=== PATIENT | male | born 1970 | race Caucasian/White ===

== ENCOUNTER 2021-09-04 05:38 | Outpatient (CLI) | payer BC ==
[~2021-09-04] VITALS: Ht 175.3 cm; Wt 94.9 kg
[~2021-09-04 05:38] MED LIST: ALLP100T PO; CEPH500C PO; HYDR-3583 PO
[2021-09-09] MEDS ORDERED: LISI10TA25 PO (11:29)
[2021-09-09] MEDS ORDERED: ALLO300T2 PO (11:29)
[2021-09-09] MEDS ORDERED: OMEP40CA6 PO (11:29)
== END 2021-09-09 11:31 | disposition home or self-care (01) ==
LOC: PREOP 05:38
PROVIDERS: ATTEND Surgery
DX: Z01.818 Encounter for other preprocedural examination (principal)

== ENCOUNTER 2021-09-11 08:24 | Day surgery (SDC) | payer BC ==
[2021-09-11] VITALS (10 sets, daily range): BP systolic 128–149; BP diastolic 75–84
[~2021-09-11] VITALS: Ht 175 cm; Wt 94.9 kg
[~2021-09-11 08:24] MED LIST changes: +ALLO300T2 PO; +LISI10TA25 PO; +OMEP40CA6 PO
[2021-09-11] MEDS ORDERED: LIDOCAINE/EPI 1%-1:200,000 (XYLOCAINE) 30 ML VIAL ONE (08:30)
[2021-09-11] MEDS ORDERED: LACTATED RINGERS 1,000 ML IV PRN (08:45)
[2021-09-11] MEDS ORDERED: ceFAZolin 2 GM IV Premixed 50 ML IV ONE (08:45)
--- NOTE | 2021-09-11 08:46 | Progress Note-Pre Operative ---
Pre-Operative Progress Note H&P Reviewed The H&P was reviewed, patient examined and no changes noted. Date Seen by Provider: Sep 11, 2021 Time Seen by Provider: 08:45 Date H&P Reviewed: Sep 11, 2021 Time H&P Reviewed: 08:40 Pre-Operative Diagnosis: Symptomatic ventral abdominal hernia TONG HONG APRN Sep 11, 2021 08:46
[2021-09-11] MEDS ORDERED: HYDR-3817 PO (08:49)
--- NOTE | 2021-09-11 08:49 | Discharge Inst-Surgical ---
D/C Lap Instructions-KIDO Reconcile Patient Problems Problems Reviewed?: Yes New, Converted, or Re-Newed RX: RX on Chart Follow Up Appt in 2 weeks Activity as tolerated No driving for 24 hours No driving while on pain medications Incentive Spirometry use every 2 hours while awake Regular Diet Symptoms to Report: Fever over 101 degree F, Nausea/Vomiting Infection Signs and Symptoms to report: Increased redness, Foul odor of wound, Increased drainage Bathing instructions: May shower Operative Area Clean/Dry; Keep incision clean/dry If any problems/questions: Contact your physician or go to Emergency Room TONG HONG APRN Sep 11, 2021 08:49
[2021-09-11] MEDS ORDERED: ONDANSETRON 4 MG/2 ML (SDV) Z0FRAN IVP PRN ×2 (09:00→11:15)
[2021-09-11] MEDS ORDERED: HYDROcodone/APAP 5 MG/325 MG (LORTAB) TAB PO ONE (09:00)
[2021-09-11] MEDS ORDERED: ACETAMINOPHEN 325 MG TABLET PO PRN (09:00)
[2021-09-11] MEDS ORDERED: morphine INJ 10 MG/ML 1ML (SYR OR VIAL) IVP PRN (09:00)
[2021-09-11] MEDS ORDERED: ONDANSETRON 4 MG/2 ML (SDV) Z0FRAN ONE (09:48)
[2021-09-11] MEDS ORDERED: proPOfol 200 MG/20 ML (DIPRIVAN) VIAL IV ONE (09:48)
[2021-09-11] MEDS ORDERED: LIDOCAINE PF 2% 5 ML (XYLOCAINE) VIAL ONE (09:48)
[2021-09-11] MEDS ORDERED: MIDAZOLAM 2 MG/2 ML (VERSED) VIAL ONE (09:49)
[2021-09-11] MEDS ORDERED: fentaNYL INJ 100 MCG/2 ML AMP ONE (09:49)
[2021-09-11] MEDS ORDERED: SEVOFLURANE (ULTANE) 15 ML INHAL SOLN ONE (10:49)
[2021-09-11] MEDS ORDERED: HYDROmorphone 2 MG/ML VIAL (DILAUDID) IV ONE (11:15)
[2021-09-11] MEDS ORDERED: morphine INJ 10 MG/ML 1ML (SYR OR VIAL) IVP ONE (11:15)
--- NOTE | 2021-09-11 11:45 | Anesthesia-General Post-Op ---
General Patient Condition Mental Status/LOC: Same as Preop Cardiovascular: Satisfactory Nausea/Vomiting: Absent Respiratory: Satisfactory Pain: Controlled Complications: Absent Post Op Complications Complications None Follow Up Care/Instructions Patient Instructions None needed. Anesthesia/Patient Condition Patient Condition Patient is doing well, no complaints, stable vital signs, no apparent adverse anesthesia problems. TANISHA LEVY DO Sep 11, 2021 11:45
[2021-09-11] MEDS ORDERED: HYDROcodone/APAP 5 MG/325 MG (LORTAB) TAB ONE (12:27)
--- NOTE | 2021-09-11 13:37 | OPERATIVE REPORT ---
DATE OF SERVICE: 09/11/2021 PREOPERATIVE DIAGNOSIS: Epigastric ventral abdominal wall reducible hernia. POSTOPERATIVE DIAGNOSIS: Epigastric ventral abdominal wall reducible hernia. PROCEDURE PERFORMED: Ventral abdominal hernia repair primarily. SURGEON: Eli Moody MD. RUG WASHER: Bruce Kaufman APRN. ANESTHESIA: General laryngeal mask airway. ESTIMATED BLOOD LOSS: Minimal. FINDINGS: Small epigastric ventral hernia with a defect approximately 5 mm in size. DISPOSITION: The patient tolerated the procedure well. INDICATIONS FOR PROCEDURE: The patient is a 50-year-old male, who has noticed an outpouching in the ventral abdominal wall in the epigastric region a year ago and over time, this has increased in size and caused pain, especially upon heavy exertion and lifting weights. Upon examination, he was found to have a symptomatic reducible ventral hernia in the epigastric region. DESCRIPTION OF PROCEDURE: The patient was brought to the operating room and laid supine on the table. After adequate IV pain and sedative medications and general laryngeal mask airway intubation, the abdomen was prepped and draped in a standard surgical fashion. A 0.5% Marcaine with epinephrine was used to anesthetize the overlying skin in the epigastric region and a transverse skin incision was made using a 15 blade. Subcutaneous tissue was then dissected out. The hernia sac was identified and dissected out using electrocautery as well as blunt dissection. The only preperitoneal fat was within the hernia sac and the hernia sac was opened using cautery and the hernia sac completely excised using electrocautery. The defect was very small, approximately 5 mm in size. We then proceeded with primary repair of the hernia horizontally using multiple interrupted 0 Prolene sutures. The subcutaneous tissue was then reapproximated using 3-0 Vicryl interrupted sutures and the skin was closed using 4-0 Monocryl running subcuticular suture. Wound was then cleaned and covered with Dermabond. The patient tolerated the procedure well. We will start IV normal pain medication as well as a clear liquid diet. Once he is tolerating clears, has good pain control with oral pain medications, and ambulating well, we will discharge him home. He will be instructed to do no heavy lifting or exertion for the next two weeks. Job ID: [id number] DocumentID: [id number] Dictated Date: 09/11/2021 10:52:30 Scruff Worker Date: 09/11/2021 13:37:06 Dictated By: ELI MOODY MD
== END 2021-09-11 13:05 | disposition home or self-care (01) ==
LOC: SDC 08:24
PROVIDERS: ATTEND Surgery
DX: K43.9 Ventral hernia without obstruction or gangrene (principal); K21.9 Gastro-esophageal reflux disease without esophagitis; M10.9 Gout, unspecified; I10 Essential (primary) hypertension; Z79.899 Other long term (current) drug therapy; Z87.891 Personal history of nicotine dependence
CPT/HCPCS: 87081

== ENCOUNTER → 2022-09-02 | Outpatient (CLI) | payer BC ==
[~2022-09-02] MED LIST changes: +HYDR-3817 PO
== END ==
LOC: CARD 08:47
PROVIDERS: ATTEND Psychiatry & Neurology Psychiatry
DX: I35.1 Nonrheumatic aortic (valve) insufficiency (principal); I51.7 Cardiomegaly
CPT/HCPCS: 93306

== ENCOUNTER → 2022-09-08 | Outpatient (CLI) | payer BC ==
[~2022-09-08] MED LIST changes: +CATHETER FLUSH 10 ML SYR IV PRN; +HOLD METFORMIN - RECEIVED CONTRAST 20 ML VIAL IV SCH; +IOHEXOL 350 MG/ML 100 ML (OMNIPAQUE 350) VIAL IV ONE; +MTP25TSR PO; +MULT-348 PO; +NS 100 ML (IVPB) BAG IV ONE; +TADA20TA43 PO
--- NOTE | 2022-09-08 09:01 | Diagnostic Imaging Report ---
EXAMINATION: CT angiography of the chest. TECHNIQUE: Contrast enhanced thin section helical images were obtained through the chest with intravenous contrast timed for the optimal opacification of the arterial structures per CTA protocol. Post-processing, reconstructions and interpretation of angiographic images of the vessels was performed. 3D MIP reconstructions were performed and reviewed. All CT scans use one or more of the following dose optimizing techniques: automated exposure control, MA and/or KvP adjustment based on a patient size and exam type, or iterative reconstruction. HISTORY: Aortic aneurysm COMPARISON: None available. FINDINGS: Aortic root is distorted by motion. It measures 4.3 x 4.3 cm. Ascending aorta measures 3.3 x 3.5 cm. The arch and descending aorta are normal in caliber. There is no edema or pneumonia. No pleural effusion. No pneumothorax. No suspicious nodules. There is no axillary or supraclavicular lymphadenopathy. There is no mediastinal lymphadenopathy. Heart size is normal. There are no coronary artery calcifications. No pericardial effusion. Limited views of the upper abdomen show hepatic steatosis. There are no suspicious osseus lesions. IMPRESSION: 1. Aortic root aneurysm. The root is distorted by motion but measures at least 4.3 x 4.3 cm. 2. Steatotic liver. Dictated by: Dictated on workstation # [id number]
== END ==
LOC: RAD 07:45
PROVIDERS: ATTEND Internal Medicine Cardiovascular Disease
DX: Q25.43 Congenital aneurysm of aorta (principal); K76.0 Fatty (change of) liver, not elsewhere classified; I10 Essential (primary) hypertension; I25.10 Atherosclerotic heart disease of native coronary artery without angina pectoris
CPT/HCPCS: 71275

== ENCOUNTER 2022-09-09 07:03 | Day surgery (SDC) | payer BC ==
[2022-09-09] VITALS (10 sets, daily range): BP systolic 111–160; BP diastolic 58–80
[~2022-09-09] VITALS: Ht 172.7 cm; Wt 92.8 kg
[~2022-09-09 07:03] MED LIST changes: -CATHETER FLUSH 10 ML SYR IV PRN; -HOLD METFORMIN - RECEIVED CONTRAST 20 ML VIAL IV SCH; -IOHEXOL 350 MG/ML 100 ML (OMNIPAQUE 350) VIAL IV ONE; -MTP25TSR PO; -MULT-348 PO; -NS 100 ML (IVPB) BAG IV ONE; -TADA20TA43 PO
[2022-09-09] MEDS ORDERED: NS IV 1000 ML 1,000 ML IV SCH ×2 (07:15→09:00)
[2022-09-09] MEDS ORDERED: LIDOCAINE 2% VISCOUS 15 ML UDC ONE (07:16)
[2022-09-09] MEDS ORDERED: NS IV 1000 ML 1,000 ML ONE (07:16)
--- NOTE | 2022-09-09 07:42 | Diagnostic Imaging Report ---
INDICATION: Preprocedural clearance. FINDINGS: Portable chest. The lungs are well-aerated and clear. There is mild cardiomegaly. There is noted azygos lobe in the right upper lung. No pneumothorax or pleural effusion. IMPRESSION: Cardiomegaly with no acute changes noted. Dictated by: Dictated on workstation # [id number]
[2022-09-09] MEDS ORDERED: MULT-348 PO (07:57)
[2022-09-09] MEDS ORDERED: MTP25TSR PO (07:57)
[2022-09-09] MEDS ORDERED: TADA20TA43 PO (07:57)
[2022-09-09 08:01] LABS: BILIRUBIN,URINE NEGATIVE (NEGATIVE); CLARITY,URINE CLEAR; COLOR,URINE YELLOW; GLUCOSE, URINE (UA) NEGATIVE (NEGATIVE); HEMATOCRIT 43 % (40-54); HEMOGLOBIN 15.3 g/dL (13.3-17.7); KETONES,URINE NEGATIVE (NEGATIVE); LEUKOCYTE ESTERASE ,URINE NEGATIVE (NEGATIVE); MEAN CORPUSCULAR HEMOGLOBIN 31 pg (25-34); MEAN CORPUSCULAR HGB CONC 35 g/dL (32-36); MEAN CORPUSCULAR VOLUME 89 fL (80-99); MEAN PLATELET VOLUME 10.4 fL (9.0-12.2); NITRITE,URINE NEGATIVE (NEGATIVE); PLATELET COUNT 183 10^3/uL (130-400); PROTEIN,URINE NEGATIVE (NEGATIVE)
[2022-09-09] MEDS ORDERED: MIDAZOLAM 5 MG/5 ML (VERSED) VIAL ONE (08:01)
[2022-09-09] MEDS ORDERED: fentaNYL INJ 100 MCG/2 ML AMP ONE (08:01)
[2022-09-09 08:08] LABS: BACTERIA,URINE NEGATIVE /HPF; SQUAMOUS EPITHELIAL CELL,UR RARE /HPF; WBC,URINE RARE /HPF
[2022-09-09 08:13] LABS: PROTHROMBIN TIME PATIENT 13.3 SEC (12.2-14.7)
[2022-09-09 08:25] LABS: ALBUMIN 4.3 GM/DL (3.2-4.5); BILIRUBIN,TOTAL 0.8 MG/DL (0.1-1.0); CALCIUM 9.4 MG/DL (8.5-10.1); CREATININE SERUM 1.14 MG/DL (0.60-1.30); POTASSIUM 4.1 MMOL/L (3.6-5.0)
--- NOTE | 2022-09-09 08:40 | Cardiac Procedure Note-CS/ASA ---
Pre-Procedure Note Pre-Op Procedure Note Date of Available H&P: Sep 03, 2022 Date H&P Reviewed: Sep 09, 2022 Time H&P Reviewed: 08:10 History & Physical: H&P Reviewed, Patient Examed, No changes noted Pre-Operative Diagnosis: Aortic regurg Conscious Sedation Pre-Proced Time 08:10 ASA Score 3 For ASA 3 and 4: Consider anesthesia and medical clearance. Also, for patients with a history of failed moderate sedation consider anesthesia. Airway Lungs Heart ASA score ASA 1: a normal healthy patient ASA 2: a patient with a mild systemic disease (mid diabetes, controlled hypertension, obesity x ASA 3: a patient with a severe systemic disease that limits activity (angina, COPD, prior Myocardial infarction) ASA 4: a patient with an incapacitating disease that is a constant threat to life (CHF, renal failure) ASA 5: a moribund patient not expected to survive 24 hrs. (ruptured aneurysm) ASA 6: a declared brain- patient whose organs are being harvested. For emergent operations, add the letter E after the classification Mallampati Classification Grade 3 Sedation Plan Analgesia, Amnesia, Plan communicated to team members, Discussed options with patient/fam, Discussed risks with patient/fam The patient is an appropriate candidate to undergo the planned procedure, sedation, and anesthesia. The patient immediately re-assessed prior to indication. NICOL JAIMES MD Sep 09, 2022 08:40
--- NOTE | 2022-09-09 08:42 | Discharge Inst-Post CATH ---
Discharge Inst-CATH/EP Problems Reviewed?: Yes Post Cardiac Cath/EP D/C Inst Follow Up/Plan Appointment with Dr. Porter's office in 2 to 4 weeks <b>CARDIAC CATH/EP PROCEDURE DISCHARGE INSTRUCTIONS</b> ACTIVITY * Go Home directly and rest. * Limit activity of the leg (or wrist if it was used) for 7 days including aer obics, swimming, jogging, bicycling, etc. * Restrict stair-climbing for 7 days if possible, if not, climb up with your non-cath leg, then bring together on the same step. * Avoid lifting, pushing, pulling or excessive movement of the affected extremi ty for 7 days. * Customary sexual activity may be resumed after 2 days-use caution not to use a position that strains or causes pain to the affected extremity. * No driving for 24 hours. * NO SMOKING. * Avoid straining for bowel movements for 7 days. * Gentle walking on level ground is allowed. * Returning to work will depend on the type of procedure and the results. Your doctor will discuss this with you. CALL YOUR DOCTOR FOR ANY OF THE FOLLOWING: *If bleeding from the puncture site occurs- Apply gentle pressure to site with clean cloth and call your doctor or EMS. * If a knot or lump forms under the skin, increases in size, or causes pain. * If bruising appears to be worsening or moving further down your leg instead of disappearing. * Temperature above 101 F. CARE OF YOUR GROIN INCISION; * Bruising or purple discoloration of the skin near the puncture site is common. * You may shower only, no bathtub bathing for 5 days. Be careful to avoid slipping as your leg may feel stiff. * If a closure device was used on your femoral artery, please see the attached guide regarding care of the device and your leg. * Leave dressing on FOR 24 hours. CARE OF YOUR WRIST INCISION; * Bruising or purple discoloration of the skin near the puncture site is common. * You may shower. * DO NOT submerge wrist. * Leave dressing on FOR 24 hours. NICOL PORTER MD Sep 09, 2022 08:42
[2022-09-09] MEDS ORDERED: LIDOCAINE 2% VISCOUS 15 ML UDC PO ONE (08:45)
[2022-09-09] MEDS ORDERED: MIDAZOLAM 5 MG/5 ML (VERSED) VIAL IV ONE (08:45)
[2022-09-09] MEDS ORDERED: fentaNYL INJ 100 MCG/2 ML AMP IV ONE (08:45)
== END 2022-09-09 10:10 | disposition home or self-care (01) ==
LOC: CATH 07:03
PROVIDERS: ATTEND Internal Medicine Cardiovascular Disease
DX: R55 Syncope and collapse (principal); I10 Essential (primary) hypertension; K21.9 Gastro-esophageal reflux disease without esophagitis; M10.9 Gout, unspecified; Z79.899 Other long term (current) drug therapy; I08.0 Rheumatic disorders of both mitral and aortic valves
CPT/HCPCS: 36415; 71045; 80053; 80061; 81000; 85027; 85610; 85730; 87081; 93005; 93312

== ENCOUNTER 2022-10-26 08:42 | Outpatient (CLI) | payer BC ==
[~2022-10-26 08:42] MED LIST changes: +MTP25TSR PO; +MULT-348 PO; +TADA20TA43 PO
== END 2022-10-26 09:00 ==
LOC: SLEEP 08:42
PROVIDERS: ATTEND Nurse Practitioner
DX: G47.33 Obstructive sleep apnea (adult) (pediatric) (principal); G47.10 Hypersomnia, unspecified; R06.83 Snoring
CPT/HCPCS: G0399

== ENCOUNTER 2023-04-28 09:00 | Day surgery (SDC) | payer BC ==
[2023-04-28] VITALS (9 sets, daily range): BP systolic 110–139; BP diastolic 41–58
[~2023-04-28] VITALS: Ht 172.7 cm; Wt 92.5 kg
[2023-04-28 07:34] LABS: BILIRUBIN,URINE NEGATIVE (NEGATIVE); CLARITY,URINE CLEAR; COLOR,URINE YELLOW; GLUCOSE, URINE (UA) NEGATIVE (NEGATIVE); KETONES,URINE NEGATIVE (NEGATIVE); LEUKOCYTE ESTERASE ,URINE NEGATIVE (NEGATIVE); NITRITE,URINE NEGATIVE (NEGATIVE); PROTEIN,URINE NEGATIVE (NEGATIVE)
[2023-04-28 07:35] LABS: HEMATOCRIT 41 % (40-54); HEMOGLOBIN 14.5 g/dL (13.3-17.7); MEAN CORPUSCULAR HEMOGLOBIN 32 pg (25-34); MEAN CORPUSCULAR HGB CONC 36 g/dL (32-36); MEAN CORPUSCULAR VOLUME 89 fL (80-99); MEAN PLATELET VOLUME 10.1 fL (9.0-12.2); PLATELET COUNT 173 10^3/uL (130-400); WHITE BLOOD COUNT 5.7 10^3/uL (4.3-11.0)
--- NOTE | 2023-04-28 07:40 | Diagnostic Imaging Report ---
INDICATION: Chest pain Portable chest 7:27 AM Heart size and pulmonary vascularity are normal. Lungs are clear. There are no effusions or pneumothoraces. IMPRESSION: No acute abnormalities in the chest. Dictated by: Dictated on workstation # [id number]
[2023-04-28 07:44] LABS: BACTERIA,URINE NEGATIVE /HPF; SQUAMOUS EPITHELIAL CELL,UR RARE /HPF; WBC,URINE RARE /HPF
[2023-04-28 07:45] LABS: AMORPHOUS SEDIMENT,UR RARE AMOR URATES /LPF
[2023-04-28 07:49] LABS: PROTHROMBIN TIME PATIENT 13.8 SEC (12.2-14.7)
[2023-04-28 07:54] LABS: ALBUMIN 4.1 GM/DL (3.2-4.5); BILIRUBIN,TOTAL 0.7 MG/DL (0.1-1.0); CALCIUM 9.2 MG/DL (8.5-10.1); CREATININE SERUM 1.1 MG/DL (0.60-1.30); POTASSIUM 4.1 MMOL/L (3.6-5.0); TOTAL PROTEIN 6.5 GM/DL (6.4-8.2)
--- NOTE | 2023-04-28 08:22 | Cardiac Procedure Note-CS/ASA ---
Pre-Procedure Note Pre-Op Procedure Note Date of Available H&P: April 15, 2023 Date H&P Reviewed: April 28, 2023 Time H&P Reviewed: 08:21 History & Physical: H&P Reviewed, Patient Examed, No changes noted Pre-Operative Diagnosis: Aortic regurg Moderate Sedation PreProcedure Time 08:22 ASA Score 3 Airway Lungs Heart ASA score ASA 1: a normal healthy patient ASA 2: a patient with a mild systemic disease (mid diabetes, controlled hypertension, obesity ASA 3: a patient with a severe systemic disease that limits activity (angina, COPD, prior Myocardial infarction) ASA 4: a patient with an incapacitating disease that is a constant threat to life (CHF, renal failure) ASA 5: a moribund patient not expected to survive 24 hrs. (ruptured aneurysm) ASA 6: a declared brain- patient whose organs are being harvested. For emergent operations, add the letter E after the classification Mallampati Classification Grade 3 Sedation Plan Analgesia, Amnesia, Plan communicated to team members, Discussed options with patient/fam, Discussed risks with patient/fam The patient is an appropriate candidate to undergo the planned procedure, sedation, and anesthesia. The patient immediately re-assessed prior to indication. NICOL JAIMES MD April 28, 2023 08:22
[~2023-04-28 09:00] MED LIST changes: +ACET325T38 PO; +HEParin (CATH LAB) 2,000 ML IV ONE; +HEParin 1000 UNIT/ML (10ML VIAL) FOR BOLUS ONE; +LIDOCAINE 1% INJ 20 ML VIAL ONE; +LORA10TA76 PO; +MIDAZOLAM 5 MG/5 ML (VERSED) VIAL ONE; +NITRO DRIP 25000 MCG/D5W 250 ML IV ONE; +NS IV 1000 ML 1,000 ML IV SCH; +NS IV 1000 ML 1,000 ML ONE; +ROPI0.253 PO; +VERAPAMIL 5 MG/2 ML (CALAN) VIAL IV ONE; +fentaNYL INJ 100 MCG/2 ML AMP ONE
--- NOTE | 2023-04-28 10:37 | Discharge Inst-Post CATH ---
Discharge Inst-CATH/EP Problems Reviewed?: Yes Post Cardiac Cath/EP D/C Inst Follow Up/Plan Appointment with Dr. Porter's office in 2 to 4 weeks <b>CARDIAC CATH/EP PROCEDURE DISCHARGE INSTRUCTIONS</b> ACTIVITY * Go Home directly and rest. * Limit activity of the leg (or wrist if it was used) for 7 days including aer obics, swimming, jogging, bicycling, etc. * Restrict stair-climbing for 7 days if possible, if not, climb up with your non-cath leg, then bring together on the same step. * Avoid lifting, pushing, pulling or excessive movement of the affected extremi ty for 7 days. * Customary sexual activity may be resumed after 2 days-use caution not to use a position that strains or causes pain to the affected extremity. * No driving for 24 hours. * NO SMOKING. * Avoid straining for bowel movements for 7 days. * Gentle walking on level ground is allowed. * Returning to work will depend on the type of procedure and the results. Your doctor will discuss this with you. CALL YOUR DOCTOR FOR ANY OF THE FOLLOWING: *If bleeding from the puncture site occurs- Apply gentle pressure to site with clean cloth and call your doctor or EMS. * If a knot or lump forms under the skin, increases in size, or causes pain. * If bruising appears to be worsening or moving further down your leg instead of disappearing. * Temperature above 101 F. CARE OF YOUR GROIN INCISION; * Bruising or purple discoloration of the skin near the puncture site is common. * You may shower only, no bathtub bathing for 5 days. Be careful to avoid slipping as your leg may feel stiff. * If a closure device was used on your femoral artery, please see the attached guide regarding care of the device and your leg. * Leave dressing on FOR 24 hours. CARE OF YOUR WRIST INCISION; * Bruising or purple discoloration of the skin near the puncture site is common. * You may shower. * DO NOT submerge wrist. * Leave dressing on FOR 24 hours. NICOL PORTER MD April 28, 2023 10:37
--- NOTE | 2023-04-28 10:41 | Cardiac Cath Report ---
Cardiac Cath Report Physician (s)/Aboriginal Education Teacher (s) Physician NICOL JAIMES MD Pre-Procedure Diagnosis Pre-Procedure Diagnosis: Aortic regurg Post-Procedure Note Procedure Start Date: April 28, 2023 Name of Procedure: Left heart cath Left ventriculogram Aortic root angiogram Findings/Procedure Note PROCEDURE NOTE: 52-year-old gentleman with severe aortic regurgitation and prominent aortic root scheduled for cardiac catheterization prior to undergoing aortic valve replacement. After explaining the procedure to the patient, all pros and cons were explained, all questions were answered. The patient signed the consent and then he was placed in the cardiac catheterization laboratory. Groin was prepped in SL fashion local anesthesia was used. Sheath placed in the right radial artery, [place] catheter was advanced to the left ventricular cavity, pressure was measured, left ventriculogram was done, pulled back and engaged the left coronary system. Angiogram was done then catheter exchange and used Santosh right catheter and engaged the right coronary system then I exchanged the cath and used a pigtail catheter and placed at the aortic root and aortic root angiogram was done. At the end of the procedure the sheath was removed. Vascular band was used FINDINGS: Hemodynamics LV 120/19, end-diastolic pressure of 19 Aorta 108/66 mean of 77 ANATOMY: Left Main is free of obstructive disease Left Anterior Descending is free of obstructive disease Left Circumflex is free of obstructive disease Right Coronary Artery is free of obstructive disease, dominant artery LV Gram was done showing prominent left ventricle, preserved systolic function ejection fraction 60% Aorta evaluation done with aortic root angiogram showing prominent aortic root, +3 aortic regurgitation CONCLUSION: Dominant right coronary system with normal coronaries Prominent left ventricle with ejection fraction 60% Prominent aortic root with +3 aortic regurgitation DISCUSSION AND RECOMMENDATION: Patient is scheduled for aortic valve replacement Anesthesia Type: Conscious Sedation Estimated blood loss (mL): 15 ml Contrast Amount: 119 ml Total Radiation Dose: 905 mGy Post-Procedure Diagnosis Post-operative diagnosis: Severe aortic regurgitation Dilated aortic root Dyspnea Palpitation NICOL JAIMES MD April 28, 2023 10:41
[2023-04-28] MEDS ORDERED: NS IV 1000 ML 1,000 ML IV SCH (10:45)
== END 2023-04-28 13:15 ==
LOC: CATH 09:00 → SDC 10:52 → CATH 13:15
PROVIDERS: ATTEND Internal Medicine Cardiovascular Disease
DX: I35.1 Nonrheumatic aortic (valve) insufficiency (principal); I77.819 Aortic ectasia, unspecified site; I10 Essential (primary) hypertension; K21.9 Gastro-esophageal reflux disease without esophagitis; M10.9 Gout, unspecified; E78.2 Mixed hyperlipidemia; Z87.891 Personal history of nicotine dependence; Z79.899 Other long term (current) drug therapy; Z98.890 Other specified postprocedural states
CPT/HCPCS: 71045; 80053; 80061; 81000; 85027; 85610; 85730; 87081; 93005; 93458; 93567; C1769; C1894; 36415

== ENCOUNTER → 2023-08-13 | Outpatient (CLI) | payer BC ==
[~2023-08-13] MED LIST changes: -HEParin (CATH LAB) 2,000 ML IV ONE; -HEParin 1000 UNIT/ML (10ML VIAL) FOR BOLUS ONE; -LIDOCAINE 1% INJ 20 ML VIAL ONE; -MIDAZOLAM 5 MG/5 ML (VERSED) VIAL ONE; -NITRO DRIP 25000 MCG/D5W 250 ML IV ONE; -NS IV 1000 ML 1,000 ML IV SCH; -NS IV 1000 ML 1,000 ML ONE; -ROPI0.253 PO; +ROPI0.2533 PO; -VERAPAMIL 5 MG/2 ML (CALAN) VIAL IV ONE; -fentaNYL INJ 100 MCG/2 ML AMP ONE
== END ==
LOC: CARD 13:53
PROVIDERS: ATTEND Physician Assistant
DX: I11.9 Hypertensive heart disease without heart failure (principal); I35.1 Nonrheumatic aortic (valve) insufficiency; I25.10 Atherosclerotic heart disease of native coronary artery without angina pectoris; Z95.2 Presence of prosthetic heart valve
CPT/HCPCS: 93306